=== PATIENT | male | born 1985 | race Caucasian/White ===

== ENCOUNTER 2020-08-19 18:15 | Inpatient (IN) | payer OTHER ==
[~2020-08-19] VITALS: Ht 188 cm; Wt 114.8 kg
[~2020-08-19 18:15] MED LIST: AMBIEN10 MG PO; AMLODIPINE BESY10 MG PO; BUPRENORPHIN-N1 EACH SL; BUTORPHANO10 MG/1 ML; CATAPRES 0.1MG0.1 MG PO; CLONIDINE1 EAC1 TD; CLONIDINE1 EAC2 TD; COMPAZINE10 MG PO; COZAAR100 MG PO; CYMBALTA30 MG PO; FENOFIBRATE134 MG PO; GABAPENTIN800 MG PO; HYDROXYZINE HCL25 MG PO; K-DUR TAB 20 M20 MEQ PO; KEPPRA750 MG PO; LOSARTAN POTAS100 MG PO; MAALOX ADVANCE355 ML PO; NORCO 10-325 T1 EACH PO; NORVASC 5 MG TAB5 MG PO; PANTOPRAZOLE SO40 MG PO; PHENERGAN 25 MG25 M1 PO; PHENERGAN 25 MG25 MG PR; PHENERGAN6.25 MG/5 PO; PROTONIX40 M1 PO; PROTONIX40 MG PO; PROZAC20 MG PO; SEROQUEL100 MG PO; SEROQUEL300 MG PO; SINEMET 25/100 T1 EA PO; ULTRAM50 MG PO; VALIUM 10 MG TA10 MG PO; VALIUM 5 MG TAB5 MG PO; VISTARIL25 MG PO; VISTARIL50 MG PO; ZANAFLEX4 MG PO; ZOFRAN ODT 4 MG4 MG PO; ZOFRAN4 MG PO
[2020-08-19 19:44] LABS: HEMOGLOBIN 14.8 gm/dl (14.0-17.5); RED BLOOD COUNT 5.2 M/UL (4.20-5.50); WHITE BLOOD COUNT 9.4 K/UL (4.5-11.0)
[2020-08-19 19:52] LABS: BUN/CREATININE RATIO 27 (0-10)
[2020-08-19] MEDS ORDERED: PROTONIX 40 MG40 MG PO (21:05)
[2020-08-19] MEDS ORDERED: NEURONTIN800 MG PO (21:05)
[2020-08-19] MEDS ORDERED: AIMOVIG AU140 MG/1 M SQ (21:07)
[2020-08-19] MEDS ORDERED: ZOFRAN ODT 4 MG4 MG SL (21:07)
[2020-08-19] MEDS ORDERED: PHENERGAN 25 MG25 M1 PO ×2 (21:08→21:10)
[2020-08-19] MEDS ORDERED: SUBOXONE 4 MG-1 EACH SL ×2 (21:11→21:12)
[2020-08-19] MEDS ORDERED: SUBOXONE 8 MG-1 EACH SL (21:13)
[2020-08-19] MEDS ORDERED: DESYREL 50 MG T50 MG PO (21:14)
[2020-08-19] MEDS ORDERED: MINIPRESS CAP 11 MG PO (21:14)
[2020-08-20 03:14] LABS: HEMOGLOBIN 14.4 gm/dl (14.0-17.5); RED BLOOD COUNT 4.73 M/UL (4.20-5.50)
[2020-08-20 03:15] LABS: WHITE BLOOD COUNT 15.5 K/UL (4.5-11.0)
[2020-08-20 04:25] LABS: BUN/CREATININE RATIO 21 (0-10)
[2020-08-20 07:39] LABS: BUN/CREATININE RATIO 19 (0-10)
[2020-08-20] MEDS ORDERED: BUPRENORPHINE-1 EACH SL (10:09)
[2020-08-20 11:26] LABS: BUN/CREATININE RATIO 21 (0-10)
[2020-08-20] MEDS ORDERED: CLONIDINE1 EACH TD (12:02)
[2020-08-21 06:41] LABS: HEMOGLOBIN 13.6 gm/dl (14.0-17.5); RED BLOOD COUNT 4.47 M/UL (4.20-5.50)
[2020-08-21 06:43] LABS: WHITE BLOOD COUNT 6.9 K/UL (4.5-11.0)
[2020-08-21 07:17] LABS: BUN/CREATININE RATIO 12 (0-10)
[2020-08-21] MEDS ORDERED: NOVOLOG FL100 UNIT/1 INJ (15:05)
[2020-08-21] MEDS ORDERED: DOXYCYCLINE HY100 MG PO (15:05)
[2020-08-21] MEDS ORDERED: LANTUS SOL100 UNIT/1 SQ (15:05)
[2020-08-21] MEDS ORDERED: GLUCOPHAGE 850850 MG PO (15:07)
[2020-08-21] MEDS ORDERED: GLUCOMETER (16:17)
== END 2020-08-21 16:31 | disposition home or self-care (01) | DRG 637 ==
LOC: ER1 18:15 → CCU 20:28 → CDU 20:28 → CCU 23:30
PROVIDERS: Emergency Medicine; Family Medicine; Internal Medicine; ADMIT Internal Medicine
DX: E11.65 Type 2 diabetes mellitus with hyperglycemia (principal); J18.9 Pneumonia, unspecified organism; R65.10 Systemic inflammatory response syndrome (SIRS) of non-infectious origin without acute organ dysfunction; E87.1 Hypo-osmolality and hyponatremia; F11.20 Opioid dependence, uncomplicated; E87.2 Acidosis; E87.0 Hyperosmolality and hypernatremia; Z20.822 Contact with and (suspected) exposure to COVID-19; E86.0 Dehydration; E66.01 Morbid (severe) obesity due to excess calories; M47.896 Other spondylosis, lumbar region; K76.89 Other specified diseases of liver; K75.81 Nonalcoholic steatohepatitis (NASH); K74.60 Unspecified cirrhosis of liver; I10 Essential (primary) hypertension; F32.9 Major depressive disorder, single episode, unspecified; Z79.4 Long term (current) use of insulin; Z87.11 Personal history of peptic ulcer disease; Z83.3 Family history of diabetes mellitus; Z90.49 Acquired absence of other specified parts of digestive tract
CPT/HCPCS: 36415; 71045; 73620; 80048; 80053; 80307; 81001; 82009; 82140; 82803; 82947; 82962; 83036; 83605; 83735; 84100; 84132; 85025; 85610; 86140; 96374; 99285; C9113; G0480; J0696; J1650; J2405; J3480; J7030; U0002